=== PATIENT | female | born 1990 ===

== ENCOUNTER → 2018-08-30 | Outpatient (CLI) | payer OTHER | LOC: FIMAGING 08:11 | PROVIDERS: ATTEND Advanced Practice Midwife | DX: Z34.03 Encounter for supervision of normal first pregnancy, third trimester (principal) ==

== ENCOUNTER 2018-10-26 05:01 | Inpatient (IN) | payer OTHER ==
[2018-10-26] MEDS: LR 1,000 ML IV PRN ×3 (06:20→16:27)
[2018-10-26] MEDS ORDERED: LIDOCAINE 1% 300 MG/30 ML SDV SC PRN (06:25)
[2018-10-26] MEDS ORDERED: OXYTOCIN/RINGERS LACTATE 1,000 ML IV PRN (06:25)
[2018-10-26] MEDS ORDERED: TERBUTALINE SULFATE 1 MG/ML VIAL IV PRN (06:25)
[2018-10-26] MEDS ORDERED: MISOPROSTOL 200 MCG TAB PO PRN (06:25)
[2018-10-26] MEDS ORDERED: OLIVE OIL 118 ML BTL MISC PRN (06:25)
[2018-10-26] MEDS ORDERED: IBUPROFEN 600 MG TAB PO PRN (06:25)
[2018-10-26] MEDS ORDERED: EPSOM SALT 454 GM TP PRN (06:25)
[2018-10-26] MEDS ORDERED: AMMONIA AROMATIC 1 EACH AMP IH PRN (06:25)
--- NOTE | 2018-10-26 06:49 | PDGENHP ---
History and Physical History and Physical: CARE: [facility] HPI: Patient is a 28 yo G 1 P 0 @ 41.2 weeks that presents to L&D with complaints of strong uterine contractions since 1999 on 10/25/18. EDC: 10/17/18 which is based on LMP: 01/10/18 which is known and consistent with Ultrasound at 8 weeks. Her is complicated by: BL EIF, normal NIPT Review of Systems: Constitutional: Denies any fever, chills, or fatigue HEENT: denies any visual changes, difficulty swallowing, hearing loss Cardiovascular: Denies any chest pain, palpitations, leg swelling Respiratory: denies any cough, wheezing, or shortness of breathe GI: Denies any nausea, vomiting, diarrhea, constipation : denies any dysuria, urgency, frequency, vaginal bleeding Musculoskeletal: denies any muscle or bone pain Skin: denies any rashes Neuro: denies any headache, seizures, lightheadedness, dizziness, or loss of consciousness Psychiatric: denies any depression, anxiety, or SI/HI thoughts HISTORY: Previous OB history: nullip Social history: Family history: MGF-FL, PGF and MGF heart disease, Mom hypercholesterol, father diabetes, multiple CA in family Past medical history: hx of depression-no meds, hx of frequent UTI, kidney infection, hx of migraines Past surgical history: wisdom teeth Medications: PNV, fiber gummies Allergies (list reaction): prednisone LABS: Rh: A+ ABS: Neg Rubella: Equivocal HbsAg: NR HIV: NR VDRL: NR 1hr: 120 GC: Neg Chlamydia: Neg Pap: Normal 03/14 GBS: neg BMI: (prepreg) 20 PHYSICAL EXAM: Constitutional: WN, A&Ox3 HEENT: normocephalic atraumatic, supple Heart: RRR, no murmur Chest: CTA-B Skin: warm, dry, intact Abdomen: Soft, nontender, gravid SVE: 3/100 per RN Extremities: trace edema, negative homans sign Neuro: grossly normal Psych: normal affect assessment: FHT baseline 130, +accels, no decels, moderate variability Contractions: toco q 2 Assessment: 1) 28 yo G 1 P 0 with IUP@ 41w3d 2) spontaneous onset labor 3) GBS neg 4) Cat 1 FHR tracing 5) N/V in labor Plan: 1) Admit to L&D 2) IV fluids 3) antiemitics 4) Support for unmedicated delivery
[2018-10-26 06:59] LABS: PLATELET COUNT 176 10^3/uL (150-400)
[2018-10-26] MEDS ORDERED: AMMONIA AROMATIC 1 EACH AMP IH ONE (07:26)
[2018-10-26] MEDS ORDERED: TERBUTALINE SULFATE 1 MG/ML VIAL ONE (07:26)
[2018-10-26] MEDS ORDERED: OXYTOCIN 10 UNIT/ML VIAL ONE (07:26)
[2018-10-26] MEDS ORDERED: LIDOCAINE 1% 300 MG/30 ML SDV ONE (07:26)
[2018-10-26] MEDS ORDERED: OLIVE OIL 118 ML BTL ONE (07:26)
[2018-10-26] MEDS ORDERED: MISOPROSTOL 200 MCG TAB ONE (07:27)
[2018-10-26] MEDS ORDERED: ONDANSETRON 4 MG/2 ML VIAL ONE (07:52)
[2018-10-26] MEDS ORDERED: D5W LR 1,000 ML IV SCH (08:00)
[2018-10-26] MEDS: ONDANSETRON 4 MG/2 ML VIAL IVP PRN ×2 (08:00→16:24)
--- NOTE | 2018-10-26 09:28 | OBPROG ---
Labor Progress Note Assessment/Plan: Assessment: [id number] with IUP @41-2wks Early labor GBS Negative cat 1 FHR tracing Plan: hydrotherapy/position changes discussed pain management - open to options IA per protocol reassess 2-4hr/PRN Subjective/Intrapartum Course: 10/26/18 09:27 Pt doing ok- breathing through contractions. She states she did not sleep last night, feels very tired. She desires hydrotherapy at this time. Leyda present @ BS, supportive. Objective: 10/26/18 06:11 Patient ABO/Rh A POSITIVE 10/26/18 06:11 - Contraction Pattern Assessment Current Contraction Pattern: Regular CNM Assessment - Uterine Assessment Contraction Strength: Moderate Uterine Resting Tone: Palpates Soft Between Uterine Contractions - Intermittent Auscultation Auscultation Method Used: Doppler Heart Rate Auscultated (bpm): 115 FHR Deceleration(s) Auscultated: No Oxytocin Orders Assessment - Pre-Induction/Augmentation Assessment Gestational Age: 41 week(s) and 2 day(s) ICD10 Worksheet Patient Problems: Problems Problem Status Onset with 41 completed weeks gestation Acute
--- NOTE | 2018-10-26 13:22 | SOAPPROG ---
SOAP Progress Note Assessment/Plan: Assessment: Patient requested acupuncture for Encouragement and to help reduce nausea. She has been experiencing back labor. Treatment: Auricular: [place] Acupuncture (BFA): Cingular Gyrate, [place] 2, Point Zero, Daigle Men, Thalamus. Auricular point protocol affecting the FISHERIES BIOLOGIST to reduce pain. Bilateral: BL 23-32: Local points on LB to reduce LB labor pains and improve blood flow to uterus to encourage downward movement. DU 26 Reduce LBP Left Side: LI [address] and LR meridians. Reduce nausea. Move the blood. Encourage movement and circulation Ling Gu Extra point to reduce back pain. Da Juliet Extra point to reduce back pain. SI 3 Master point of the DU meridian. Relax the spine. Reduce back pain. Balance the SP and BL meridians. SJ 5 Support the Yudi Danay. "relax the waist". Balance the SP and GB meridians. Relax the shoulders. LI 11 Reduce nausea. Support the intestines. Balance the ST meridian. ST 36 Increase qi and blood. Improve energy. Reduce nausea. GB 34 x 2 cheo: Empirical point to relax the tendons. Open the cervix. Balance SJ and HT. GB 40 Relax the occiput. Relax the waist. Balance SJ and HT meridians. GB 41 Master point of the Yudi Danay/Belt meridian. Relax the waist. Encourage downward movement. BL 65 Benita point of the BL meridian. Relieve back pain. Right Side: SP 6 Meeting pint of the Three Yin (LR/KI/SP) balance the ST and SJ meridians. Encourage blood flow to the uterus. SP 4 Master point of the Bog[place] Danay. Support the uterus. Balance SP, SJ, ST meridians. LR 3 Move the blood. Relax the scapular. Balance the GB, LI and PC meridians. Electric stimulation: L LI 4 - R SP [address] 36 - L GB 41 L GB 34 - L GB 41 BL 23-32, bilateral Plan: 10/26/18 13:10 10/26/18 13:25 Objective: Laboratory Results 10/26/18 06:11 ICD10 Worksheet Patient Problems: Problems Problem Status Onset with 41 completed weeks gestation Acute
--- NOTE | 2018-10-26 14:08 | OBPROG ---
Labor Progress Note Assessment/Plan: Assessment: [id number] with IUP @41-2wks Early labor GBS Negative +FHTs with doppler Plan: hydrotherapy/position changes acupuncture at BS now IA per protocol reassess 2-4hr/PRN Subjective/Intrapartum Course: 10/26/18 09:27 Pt doing ok- breathing through contractions. She states she did not sleep last night, feels very tired. She desires hydrotherapy at this time. Research Physicist present @ BS, supportive. 10/26/18 13:30 Pt doing well, just got out of tub. Having acupuncture done. states her contractions have spaced out, declines exam at this time. Objective: 10/26/18 06:11 Patient ABO/Rh A POSITIVE 10/26/18 06:11 - Contraction Pattern Assessment Current Contraction Pattern: Regular - FHR Assessment Baumann FHR (bpm): 115 CNM Assessment - Uterine Assessment Contraction Strength: Moderate Uterine Resting Tone: Palpates Soft Between Uterine Contractions Contraction Frequency (minutes): irregular, q5-10 min - Intermittent Auscultation Auscultation Method Used: Doppler Heart Rate Auscultated (bpm): 115 Oxytocin Orders Assessment - Pre-Induction/Augmentation Assessment Gestational Age: 41 week(s) and 2 day(s) ICD10 Worksheet Patient Problems: Problems Problem Status Onset with 41 completed weeks gestation Acute
--- NOTE | 2018-10-26 14:34 | OBPROG ---
Labor Progress Note Assessment/Plan: Assessment: [id number] with IUP @41-2wks Early labor GBS Negative +FHTs with doppler Plan: hydrotherapy/position changes will consider acupuncture IA per protocol reassess 2-4hr/PRN Subjective/Intrapartum Course: 10/26/18 09:27 Pt doing ok- breathing through contractions. She states she did not sleep last night, feels very tired. She desires hydrotherapy at this time. Journeyman Level Acoustic Analyst present @ BS, supportive. 10/26/18 11:45 Pt doing well, in tub, will get out and cont position changes. considering acupuncture. live hanger and FOB at BS, supportive. 10/26/18 13:30 Pt doing well, just got out of tub. Having acupuncture done. states her contractions have spaced out, declines exam at this time. Objective: 10/26/18 06:11 Patient ABO/Rh A POSITIVE 10/26/18 06:11 - Contraction Pattern Assessment Current Contraction Pattern: Regular CNM Assessment - Uterine Assessment Contraction Strength: Moderate Uterine Resting Tone: Palpates Soft Between Uterine Contractions - Intermittent Auscultation Heart Rate Auscultated (bpm): 125 FHR Acceleration(s) Auscultated: Yes FHR Deceleration(s) Auscultated: No Oxytocin Orders Assessment - Pre-Induction/Augmentation Assessment Gestational Age: 41 week(s) and 2 day(s) ICD10 Worksheet Patient Problems: Problems Problem Status Onset with 41 completed weeks gestation Acute
--- NOTE | 2018-10-26 16:00 | OBPROG ---
Labor Progress Note Assessment/Plan: Assessment: [id number] with IUP @41-2wks Early labor GBS Negative cat 1 FHR Plan: start pitocin at this time pain management PRN reassess 2-3hr/PRN Subjective/Intrapartum Course: 10/26/18 09:27 Pt doing ok- breathing through contractions. She states she did not sleep last night, feels very tired. She desires hydrotherapy at this time. Credit Union Examiner present @ BS, supportive. 10/26/18 11:45 Pt doing well, in tub, will get out and cont position changes. considering acupuncture. weed inspector and FOB at BS, supportive. 10/26/18 13:30 Pt doing well, just got out of tub. Having acupuncture done. states her contractions have spaced out, declines exam at this time. 10/26/18 16:00 Pt doing ok. states she is not having any pain, contractions irregular and not intense as this morning. weed inspector and FOB supportive. Objective: 10/26/18 06:11 Patient ABO/Rh A POSITIVE 10/26/18 06:11 - SVE Dilation (cm): 4 Effacement (%): 80 Station: -2 Membranes: Intact - Contraction Pattern Assessment Current Contraction Pattern: Regular - FHR Assessment Baumann FHR (bpm): 130 FHR Pattern Variability: Moderate FHR Category: 1 CNM Assessment - Uterine Assessment Contraction Strength: Moderate Uterine Resting Tone: Palpates Soft Between Uterine Contractions Oxytocin Orders Assessment - Pre-Induction/Augmentation Assessment Gestational Age: 41 week(s) and 2 day(s) ICD10 Worksheet Patient Problems: Problems Problem Status Onset with 41 completed weeks gestation Acute
[2018-10-26] MEDS ORDERED: LR 500 ML IV PRN (16:15)
[2018-10-26] MEDS ORDERED: OXYTOCIN/RINGERS LACTATE 500 ML IV SCH (16:30)
[2018-10-26] MEDS ORDERED: FAMOTIDINE 20 MG/NACL 50 ML IV ONE (17:45)
--- NOTE | 2018-10-26 18:22 | OBPROG ---
Labor Progress Note Assessment/Plan: Assessment: [id number] with IUP @41-2wks Early labor GBS Negative doppler: +FHT Plan: cont pitocin pain management PRN- anesthesia to come speak with pt re: DEL reassess 2-3hr/PRN 10/26/18 18:22 Subjective/Intrapartum Course: 10/26/18 09:27 Pt doing ok- breathing through contractions. She states she did not sleep last night, feels very tired. She desires hydrotherapy at this time. Arts And Crafts Teacher present @ BS, supportive. 10/26/18 11:45 Pt doing well, in tub, will get out and cont position changes. considering acupuncture. letterset press set up operator and FOB at BS, supportive. 10/26/18 13:30 Pt doing well, just got out of tub. Having acupuncture done. states her contractions have spaced out, declines exam at this time. 10/26/18 16:00 Pt doing ok. states she is not having any pain, contractions irregular and not intense as this morning. letterset press set up operator and FOB supportive. 10/26/18 18:22 Pt doing well, breathing through contractions, but having nausea and vomiting with contractions. Considering DEL, would like to speak with anesthesia. Objective: 10/26/18 06:11 Patient ABO/Rh A POSITIVE 10/26/18 06:11 - SVE Membranes: Intact - Contraction Pattern Assessment Current Contraction Pattern: Regular CNM Assessment - Uterine Assessment Contraction Strength: Moderate Uterine Resting Tone: Palpates Soft Between Uterine Contractions Oxytocin Orders Assessment - Pre-Induction/Augmentation Assessment Gestational Age: 41 week(s) and 2 day(s) ICD10 Worksheet Patient Problems: Problems Problem Status Onset with 41 completed weeks gestation Acute
[2018-10-26] MEDS ORDERED: PHENYLEPHRINE HCL 100 MCG/ML SYR ONE (18:31)
[2018-10-26] MEDS ORDERED: ONDANSETRON 4 MG/2 ML VIAL IVP PRN (18:33)
[2018-10-26] MEDS ORDERED: NALOXONE HCL 0.4 MG/ML INJ IVP PRN (18:33)
[2018-10-26] MEDS ORDERED: BUPIVACAINE 0.25% 30 ML SDV ONE (18:35)
[2018-10-26] MEDS ORDERED: fentaNYL 200 MCG, BUPIVACAINE 0.5% 20 ML in NS 100 ML EP SCH (19:00)
[2018-10-26] MEDS ORDERED: fentaNYL 2MCG/ML/BUP 0.1% RTU 100 ML EP SCH (19:00)
[2018-10-26] MEDS ORDERED: LR 500 ML IV SCH (19:00)
--- NOTE | 2018-10-26 20:57 | PREANESOB ---
Obstetric Pre-Anesthesia Info - General Info Proposed Procedure: Labor Epidural : 1 Para: 0 HOLLY: 10/17/18 Gestational Age: 41 week(s) and 2 day(s) - Info Status: Full Term - Labor Status Cervical Dilation per last OB SVE: 4 Station per last OB SVE: -2 Indications for Labor Analgesia: Pain Control Anesthesia Allergies/Adverse Reactions: Allergy/AdvReac Type Severity Reaction Status Date / Time prednisone Allergy Verified 10/26/18 08:27 Home Medications: Medication Instructions Recorded Dha 1 tab PO DAILY 10/26/18 Probiotic 1 PO DAILY 10/26/18 Visit Medications: Generic Name Dose Route Start Last Admin Trade Name Freq PRN Reason Stop Dose Admin Ammonia (Aromatic Spirit) 1 each 10/26/18 06:25 Ammonia Aromatic IH 11/05/18 06:24 ONCE PRN Fainting Diphenhydramine HCl 25 - 50 mg 10/26/18 18:33 Benadryl Injection IVP 04/24/19 18:32 Q6HRS PRN Itching Lactated Ringer's 1,000 mls @ 0 mls/hr 10/26/18 06:25 10/26/18 16:27 Lr IV 10/27/18 06:24 1,000 mls PRN PRN Administration SEE PROTOCOL CONDITIONS Protocol Per Protocol Oxytocin/Lactated Ringer's 1,000 mls @ 0 mls/hr 10/26/18 06:25 Pitocin 20 Units/Lr (Premix) IV PRN PRN Post bleeding As Directed Dextrose/Lactated Ringer's 1,000 mls @ 150 mls/hr 10/26/18 08:00 D5w Lr IV 04/24/19 07:59 CONT SKYLAR Lactated Ringer's 500 mls @ 500 mls/hr 10/26/18 16:15 Lr IV 10/27/18 16:15 PRN PRN Maternal Hypotension Oxytocin/Lactated Ringer's 500 mls @ 0 mls/hr 10/26/18 16:30 10/26/18 16:27 Pitocin 30 Units/Lr (Premix) IV 04/24/19 16:29 500 mls CONT SKYLAR Administration Protocol Per Protocol Lactated Ringer's 500 mls @ 0 mls/hr 10/26/18 19:00 Lr IV 04/24/19 18:59 CONT SKYLAR As Directed Fentanyl 200 mcg/ Bupivacaine 100 mls @ 0 mls/hr 10/26/18 19:00 HCl 20 ml/ Sodium Chloride EP 11/05/18 18:59 CONT COUNTS INCLUDE 234 BEDS AT THE [facility] Protocol As Directed Ibuprofen 600 mg 10/26/18 06:25 Motrin PO ONCE PRN post , pain Lidocaine HCl 300 mg 10/26/18 06:25 Lidocaine Hcl 1% SC 04/24/19 06:24 ONCE PRN episiotomy Magnesium Sulfate 454 gm 10/26/18 06:25 Epsom Salt TP 04/24/19 06:24 Q1H PRN perineal discomfort Misoprostol 800 - 1,000 mcg 10/26/18 06:25 Cytotec PO 04/24/19 06:24 ONCE PRN Vaginal Atony/Bleeding Naloxone HCl 0.4 mg 10/26/18 18:33 Narcan IVP 04/24/19 18:32 PRN PRN Respiratory depression Vale Oil 118 ml 10/26/18 06:25 Sweet Oil MISC 04/24/19 06:24 ONCE PRN perineal massage Ondansetron HCl 4 mg 10/26/18 07:54 10/26/18 16:24 Zofran IVP 04/24/19 07:53 4 mg Q4HRS PRN Administration Nausea/Vomiting, Can't Take PO Ondansetron HCl 4 mg 10/26/18 18:33 Zofran IVP 10/27/18 18:32 Q4HRS PRN Nausea/Vomiting, Can't Take PO Terbutaline Sulfate 0.25 mg 10/26/18 06:25 Brethine IV 04/24/19 06:24 ONCE PRN Tachysystole Discontinued Medications Generic Name Dose Route Start Last Admin Trade Name Freq PRN Reason Stop Dose Admin Ammonia (Aromatic Spirit) Confirm 10/26/18 07:26 Ammonia Aromatic Administered 10/26/18 07:27 Dose 1 each IH .STK-MED ONE Bupivacaine HCl Confirm 10/26/18 18:35 Sensorcaine 0.25% Sdv Administered 10/26/18 18:36 Dose 30 ml .ROUTE .STK-MED ONE Famotidine/Sodium Chloride 50 mls @ 200 mls/hr 10/26/18 17:45 10/26/18 17:39 Pepcid 20 Mg (Premix) IV 10/26/18 17:59 50 mls ONCE ONE Administration Lidocaine HCl Confirm 10/26/18 07:26 Lidocaine Hcl 1% Administered 10/26/18 07:27 Dose 300 mg .ROUTE .STK-MED ONE Misoprostol Confirm 10/26/18 07:27 Cytotec Administered 10/26/18 07:28 Dose 1,000 mcg .ROUTE .STK-MED ONE Vale Oil Confirm 10/26/18 07:26 Sweet Oil Administered 10/26/18 07:27 Dose 118 ml .ROUTE .STK-MED ONE Ondansetron HCl Confirm 10/26/18 07:52 Zofran Administered 10/26/18 07:53 Dose 4 mg .ROUTE .STK-MED ONE Oxytocin Confirm 10/26/18 07:26 Pitocin Administered 10/26/18 07:27 Dose 40 unit .ROUTE .STK-MED ONE Phenylephrine HCl Confirm 10/26/18 18:31 Neosynephrine Administered 10/26/18 18:32 Dose 1,000 mcg .ROUTE .STK-MED ONE Terbutaline Sulfate Confirm 10/26/18 07:26 Brethine Administered 10/26/18 07:27 Dose 1 mg .ROUTE .STK-MED ONE - Vital Signs Height/Weight (Nursing): Height 170.18 cm Weight 73.028 kg - Focused Exam Neck exam: FROM Mallampati Score: Class 2 Mouth exam: normal dental/mouth exam Pulmonary: clear to auscultation Cardiovascular: regular rate and rhythym Labs: 10/26/18 06:11 Patient ABO/Rh A POSITIVE 10/26/18 06:11 - Plan Consent Signed and on Chart: Yes
--- NOTE | 2018-10-26 22:09 | OBPROG ---
Labor Progress Note Assessment/Plan: Assessment: [id number] with IUP @41-2wks Early labor GBS Negative Cat [address] Plan: cont pitocin reassess 2-4hr/PRN AROM if no cervical change at next exam Subjective/Intrapartum Course: 10/26/18 09:27 Pt doing ok- breathing through contractions. She states she did not sleep last night, feels very tired. She desires hydrotherapy at this time. Cnc Service Engineer present @ BS, supportive. 10/26/18 11:45 Pt doing well, in tub, will get out and cont position changes. considering acupuncture. casino runner and FOB at BS, supportive. 10/26/18 13:30 Pt doing well, just got out of tub. Having acupuncture done. states her contractions have spaced out, declines exam at this time. 10/26/18 16:00 Pt doing ok. states she is not having any pain, contractions irregular and not intense as this morning. casino runner and FOB supportive. 10/26/18 18:22 Pt doing well, breathing through contractions, but having nausea and vomiting with contractions. Considering DEL, would like to speak with anesthesia. 10/26/18 22:09 Pt comfortable, resting. She denies any pain. FOB and casino runner at BS, resting. Objective: 10/26/18 06:11 Patient ABO/Rh A POSITIVE 10/26/18 06:11 - SVE Dilation (cm): 4 Effacement (%): 80 Station: -2 Membranes: Intact - Contraction Pattern Assessment Current Contraction Pattern: Regular - FHR Assessment Baumann FHR (bpm): 125 FHR Pattern Variability: Moderate FHR Category: 1 Oxytocin Orders Assessment - Pre-Induction/Augmentation Assessment Gestational Age: 41 week(s) and 2 day(s) ICD10 Worksheet Patient Problems: Problems Problem Status Onset with 41 completed weeks gestation Acute
--- NOTE | 2018-10-27 02:55 | OBPROG ---
Labor Progress Note Assessment/Plan: Assessment: [id number] with IUP @41-2wks Early labor GBS Negative Cat [address] AROM- thick MSF IUPC placed Plan: cont pitocin reassess 2-4hr/PRN Subjective/Intrapartum Course: 10/26/18 09:27 Pt doing ok- breathing through contractions. She states she did not sleep last night, feels very tired. She desires hydrotherapy at this time. Loss Prevention Associate present @ BS, supportive. 10/26/18 11:45 Pt doing well, in tub, will get out and cont position changes. considering acupuncture. assistant women's soccer coach and FOB at BS, supportive. 10/26/18 13:30 Pt doing well, just got out of tub. Having acupuncture done. states her contractions have spaced out, declines exam at this time. 10/26/18 16:00 Pt doing ok. states she is not having any pain, contractions irregular and not intense as this morning. assistant women's soccer coach and FOB supportive. 10/26/18 18:22 Pt doing well, breathing through contractions, but having nausea and vomiting with contractions. Considering DEL, would like to speak with anesthesia. 10/26/18 22:09 Pt comfortable, resting. She denies any pain. FOB and assistant women's soccer coach at BS, resting. 10/27/18 02:55 Pt doing well, is feeling some pain with contractions. She desires to hit DEL bolus. Objective: 10/26/18 06:11 Patient ABO/Rh A POSITIVE 10/26/18 06:11 - SVE Dilation (cm): 5 Effacement (%): 90 Station: -1 Membranes: AROM Amniotic Fluid Color: Thick Meconium - Contraction Pattern Assessment Current Contraction Pattern: Regular - FHR Assessment Baumann FHR (bpm): 125 FHR Pattern Variability: Moderate FHR Category: 1 - Procedures Non-surgical Procedures: Amniotomy, IUPC Oxytocin Orders Assessment - Pre-Induction/Augmentation Assessment Gestational Age: 41 week(s) and 2 day(s) ICD10 Worksheet Patient Problems: Problems Problem Status Onset with 41 completed weeks gestation Acute
[2018-10-27] MEDS: LR 1,000 ML IV PRN (03:24)
[2018-10-27] MEDS ORDERED: CALCIUM CARBONATE 500 MG CHEWABLE TAB PO PRN (05:43)
--- NOTE | 2018-10-27 05:46 | OBPROG ---
Labor Progress Note Assessment/Plan: Assessment: [id number] with IUP @41-3wks Active labor GBS Negative Cat [address] thick MSF Plan: cont pitocin, avoiding tachysystole reassess 2hr/PRN if variables cont will start amnioinfusion anticipate pushing in approx 2 hours Subjective/Intrapartum Course: 10/26/18 09:27 Pt doing ok- breathing through contractions. She states she did not sleep last night, feels very tired. She desires hydrotherapy at this time. Geography Instructor present @ BS, supportive. 10/26/18 11:45 Pt doing well, in tub, will get out and cont position changes. considering acupuncture. strike plate attacher and FOB at BS, supportive. 10/26/18 13:30 Pt doing well, just got out of tub. Having acupuncture done. states her contractions have spaced out, declines exam at this time. 10/26/18 16:00 Pt doing ok. states she is not having any pain, contractions irregular and not intense as this morning. strike plate attacher and FOB supportive. 10/26/18 18:22 Pt doing well, breathing through contractions, but having nausea and vomiting with contractions. Considering DEL, would like to speak with anesthesia. 10/26/18 22:09 Pt comfortable, resting. She denies any pain. FOB and strike plate attacher at BS, resting. 10/27/18 02:55 Pt doing well, is feeling some pain with contractions. She desires to hit DEL bolus. Objective: 10/26/18 06:11 Patient ABO/Rh A POSITIVE 10/26/18 06:11 - SVE Dilation (cm): 9 Effacement (%): 90 Station: -1 Membranes: AROM Amniotic Fluid Color: Thick Meconium - Contraction Pattern Assessment Current Contraction Pattern: Regular - FHR Assessment Baumann FHR (bpm): 120 (prolong decel x3 min) FHR Pattern Variability: Moderate FHR Category: 2 - Procedures Non-surgical Procedures: Amniotomy, IUPC Oxytocin Orders Assessment - Pre-Induction/Augmentation Assessment Gestational Age: 41 week(s) and 2 day(s) ICD10 Worksheet Patient Problems: Problems Problem Status Onset with 41 completed weeks gestation Acute
[2018-10-27] MEDS: ONDANSETRON 4 MG/2 ML VIAL IVP PRN (05:54)
[2018-10-27] MEDS ORDERED: BUPIVACAINE 0.25% 30 ML SDV ONE (07:59)
--- NOTE | 2018-10-27 08:32 | OBPROG ---
Labor Progress Note Assessment/Plan: Assessment: [id number] with IUP @41-3wks Active labor GBS Negative Cat 2 FHR, prolong decel 3-[address] thick MSF IUPC/FSE Plan: start pushing once MD available anticipate 10/27/18 08:29 Subjective/Intrapartum Course: 10/26/18 09:27 Pt doing ok- breathing through contractions. She states she did not sleep last night, feels very tired. She desires hydrotherapy at this time. Satellite Technician present @ BS, supportive. 10/26/18 11:45 Pt doing well, in tub, will get out and cont position changes. considering acupuncture. rack production worker and FOB at BS, supportive. 10/26/18 13:30 Pt doing well, just got out of tub. Having acupuncture done. states her contractions have spaced out, declines exam at this time. 10/26/18 16:00 Pt doing ok. states she is not having any pain, contractions irregular and not intense as this morning. rack production worker and FOB supportive. 10/26/18 18:22 Pt doing well, breathing through contractions, but having nausea and vomiting with contractions. Considering DEL, would like to speak with anesthesia. 10/26/18 22:09 Pt comfortable, resting. She denies any pain. FOB and rack production worker at BS, resting. 10/27/18 02:55 Pt doing well, is feeling some pain with contractions. She desires to hit DEL bolus. 10/27/18 08:31 Pt feeling pressure with contractions. Denies any pain. Satellite Technician and FOB @ BS, supportive. Objective: 10/26/18 06:11 Patient ABO/Rh A POSITIVE 10/26/18 06:11 - SVE Dilation (cm): 10 Effacement (%): 100 Station: +1 Membranes: AROM Amniotic Fluid Color: Thick Meconium - Contraction Pattern Assessment Current Contraction Pattern: Regular - FHR Assessment Baumann FHR (bpm): 120 (prolong decel noted with pushing) FHR Pattern Variability: Moderate FHR Category: 2 - Procedures Non-surgical Procedures: Amniotomy, IUPC Oxytocin Orders Assessment - Pre-Induction/Augmentation Assessment Gestational Age: 41 week(s) and 2 day(s) ICD10 Worksheet Patient Problems: Problems Problem Status Onset with 41 completed weeks gestation Acute
--- NOTE | 2018-10-27 09:38 | PDCONSULT ---
Heavy Mobile Equipment Operator Note: Called at 0817 by Mary Wall CNM, requesting my presence during pushing phase of primip, as had heart rate deceleration with first 2 pushes, which resolved and they were going to hold off on pushing until my arrival. Messaged at 0830 - FHR is fine. Arrived to floor by 0845. Reviewed pt with CNM and FHR tracing. Pushing to resume. Has now been pushing since 09, with heart rate baseline of 120, with decels with pushing to 70. Varying speed of return to baseline, with moderate variability between contractions. Will continue to observe and be available at [facility] request. Deonna Herrera MD, FACOG [facility]
[2018-10-27] MEDS ORDERED: HYDROCORTISONE 0.5% CREAM TP PRN (11:44)
[2018-10-27] MEDS ORDERED: SIMETHICONE 80 MG TAB CHEW PO PRN (11:44)
--- NOTE | 2018-10-27 13:07 | OBDEL ---
Info Type: Vaginal Presentation at Delivery: Vertex L&D Analgesia/Anesthesia Type: Epidural GBS+: No Intrapartum Medications: Generic Name Dose Route Start Last Admin Trade Name Mirna PRN Reason Stop Dose Admin Calcium Carbonate 500 mg 10/27/18 05:43 10/27/18 05:54 Tums PO 04/25/19 05:42 500 mg TID PRN Administration Indigestion Oxytocin/Lactated Ringer's 500 mls @ 0 mls/hr 10/26/18 16:30 10/26/18 16:27 Pitocin 30 Units/Lr (Premix) IV 04/24/19 16:29 500 mls CONT SKYLAR Administration Protocol Per Protocol Ondansetron HCl 4 mg 10/26/18 07:54 10/27/18 05:54 Zofran IVP 04/24/19 07:53 4 mg Q4HRS PRN Administration Nausea/Vomiting, Can't Take PO Discontinued Medications Generic Name Dose Route Start Last Admin Trade Name Mirna PRN Reason Stop Dose Admin Lactated Ringer's 1,000 mls @ 0 mls/hr 10/26/18 06:25 10/27/18 03:24 Lr IV 10/27/18 06:24 1,000 mls PRN PRN Administration SEE PROTOCOL CONDITIONS Protocol Per Protocol Oxytocin/Lactated Ringer's 1,000 mls @ 0 mls/hr 10/26/18 06:25 10/27/18 10:33 Pitocin 20 Units/Lr (Premix) IV 1,000 mls PRN PRN Administration Post bleeding As Directed Famotidine/Sodium Chloride 50 mls @ 200 mls/hr 10/26/18 17:45 10/26/18 17:39 Pepcid 20 Mg (Premix) IV 10/26/18 17:59 50 mls ONCE ONE Administration Fentanyl 200 mcg/ Bupivacaine 100 mls @ 0 mls/hr 10/26/18 19:00 10/27/18 02: 21 HCl 20 ml/ Sodium Chloride EP 11/05/18 18:59 100 mls CONT SKYLAR Administration Protocol As Directed Ibuprofen 600 mg 10/26/18 06:25 10/27/18 10:21 Motrin PO 600 mg ONCE PRN Administration post , pain - Hospital Course Intrapartum: 10/26/18 09:27 Pt doing ok- breathing through contractions. She states she did not sleep last night, feels very tired. She desires hydrotherapy at this time. Facilities Painter present @ BS, supportive. 10/26/18 11:45 Pt doing well, in tub, will get out and cont position changes. considering acupuncture. hvac project engineer and FOB at BS, supportive. 10/26/18 13:30 Pt doing well, just got out of tub. Having acupuncture done. states her contractions have spaced out, declines exam at this time. 10/26/18 16:00 Pt doing ok. states she is not having any pain, contractions irregular and not intense as this morning. hvac project engineer and FOB supportive. 10/26/18 18:22 Pt doing well, breathing through contractions, but having nausea and vomiting with contractions. Considering DEL, would like to speak with anesthesia. 10/26/18 22:09 Pt comfortable, resting. She denies any pain. FOB and hvac project engineer at BS, resting. 10/27/18 02:55 Pt doing well, is feeling some pain with contractions. She desires to hit DEL bolus. 10/27/18 08:31 Pt feeling pressure with contractions. Denies any pain. Facilities Painter and FOB @ BS, supportive. Indications for Delivery: Spontaneous Labor Vaginal Delivery - Delivery Provider Delivery Physician/CNM: Mary Wall - Labor and Delivery Onset of Contractions Date: 10/25/18 Onset of Contractions Time: 20:00 Onset of Contractions Type: Augmented Rupture of Membranes Date: 10/27/18 Rupture of Membranes Type: Artificial Amniotic Fluid Color: Thick Meconium Dilation Complete Date: 10/27/18 Dilation Complete Time: 08:08 Placenta Delivery Date: 10/27/18 Placenta Delivery Time: 09:57 Total Hours of Labor: 37 Non-surgical Procedures: Amniotomy, IUPC Laceration: 1st Degree Repair: 3-0, Vicryl Vaginal Sponge Count Correct: Yes Vaginal Needle Count Correct: Yes Vaginal Sweep Performed: Yes EBL: 200 Delivery Events: Other (Specify) (compound right arm) Cord Gases: Cord Gases Cord Blood PCO2 22.7 mmHg (37-60) L 10/27/18 09:58 Cord Base Excess -6.6 mEq/L (-13.6--3.2) 10/27/18 09:58 Cord ABG pH 7.24 (7.10-7.37) 10/27/18 09:58 Cord VBG pH 7.37 (7.20-7.42) 10/27/18 09:58 - Medications Labor Augmentation/Induction Methods Used: Pitocin Labor Augmentation/Induction Indication: Inadequate Contraction Frequency, Inadequate Contraction Strength Operative Report - Delivery Cord Gases: Cord Gases Cord Blood PCO2 22.7 mmHg (37-60) L 10/27/18 09:58 Cord Base Excess -6.6 mEq/L (-13.6--3.2) 10/27/18 09:58 Cord ABG pH 7.24 (7.10-7.37) 10/27/18 09:58 Cord VBG pH 7.37 (7.20-7.42) 10/27/18 09:58 Data HOLLY: 10/17/18 Gestational Age: 41 week(s) and 3 day(s) Baumann Delivery Date: 10/27/18 Delivery Time: 09:53 Sex of Infant: Male Score (1 Min): 7 Score (5 Min): 8 ICD10 Worksheet Patient Problems: Problems Problem Status Onset with 41 completed weeks gestation Acute
[2018-10-27] MEDS: ACETAMINOPHEN 325 MG TAB PO SCH ×3 (13:13→23:01)
--- NOTE | 2018-10-27 15:18 | POSTANESTH ---
Post Anesthetic Evaluation Cardiovascular Status: Normal, Stable Respiratory Status: Normal, Stable Level of Consciousness/Mental Status: Can Participate in Eval Pain Control: Adequate, Prn Tx Ordered Nausea/Vomiting Control: Adequate, Prn Tx Ordered Complications Possibly Related to Anesthesia: None Noted
[2018-10-27] MEDS: IBUPROFEN 600 MG TAB PO SCH ×2 (16:20→23:01)
[2018-10-27] MEDS: DOCUSATE SODIUM 100 MG CAP PO PRN (23:01)
[2018-10-28] MEDS: ACETAMINOPHEN 325 MG TAB PO SCH ×4 (05:27→23:26)
[2018-10-28] MEDS: IBUPROFEN 600 MG TAB PO SCH ×4 (05:28→23:26)
[2018-10-28] MEDS: DOCUSATE SODIUM 100 MG CAP PO PRN (09:01)
--- NOTE | 2018-10-28 10:36 | OBPP ---
Progress Note Assessment/Plan: Assessment: Post- day 1 Plan: Normal PP care Breast feeding assistance D/C home tomorrow 10/28/18 10:34 Subjective/ Course: 10/28/18 10:35 Feeling well. Breast feeding well. Pain well controlled with PO meds. Voiding well. No BM yet. Objective: 10/26/18 06:11 Patient ABO/Rh A POSITIVE 10/26/18 06:11 Temp Pulse Resp BP Pulse Ox 36.3 C 74 16 114/71 95 10/27/18 20:00 10/27/18 20:00 10/27/18 20:00 10/27/18 20:00 10/27/18 20:00 VSS Uterine Position/Fundal Height: At Umbilicus Uterine Tone: Firm
[2018-10-29] MEDS: IBUPROFEN 600 MG TAB PO SCH ×2 (05:31→11:42)
[2018-10-29] MEDS: ACETAMINOPHEN 325 MG TAB PO SCH ×2 (05:31→11:42)
[2018-10-29] MEDS: DOCUSATE SODIUM 100 MG CAP PO PRN (05:37)
[2018-10-29 09:25] VITALS: BP 105/66
--- NOTE | 2018-10-29 11:07 | OBPP ---
Progress Note Assessment/Plan: Assessment: PPD # 2 Establishing Plan: Discharge home today; follow up week 2//6 10/29/18 11:06 Subjective/ Course: 10/28/18 10:35 Feeling well. Breast feeding well. Pain well controlled with PO meds. Voiding well. No BM yet. 10/29/18 11:05 Doing well. Overall happy with experience. Pain well controlled with medication. going well. Bleeding minimal. Ready to discharge home today. Objective: 10/26/18 06:11 Patient ABO/Rh A POSITIVE 10/26/18 06:11 Temp Pulse Resp BP Pulse Ox 36.5 C 76 17 105/66 97 10/29/18 08:36 10/29/18 08:36 10/29/18 08:36 10/29/18 08:36 10/29/18 08:36 Breasts soft; nipples intact bilaterally neg lolis's Uterine Position/Fundal Height: Umbilicus -1 Uterine Tone: Firm
--- NOTE | 2018-10-29 11:08 | OBGCSDC ---
General Delivery Information - General Info : 1 Para: 1 Abortions: 0 Type: Vaginal L&D Analgesia/Anesthesia Type: Epidural Admission Date: 10/26/18 Labs: Patient ABO/Rh A POSITIVE 10/26/18 06:11 Hct 43.9 % (38.0-47.0) 10/26/18 06:11 - Hospital Course Intrapartum: 10/26/18 09:27 Pt doing ok- breathing through contractions. She states she did not sleep last night, feels very tired. She desires hydrotherapy at this time. Credit Rating Checker present @ BS, supportive. 10/26/18 11:45 Pt doing well, in tub, will get out and cont position changes. considering acupuncture. mohel and FOB at BS, supportive. 10/26/18 13:30 Pt doing well, just got out of tub. Having acupuncture done. states her contractions have spaced out, declines exam at this time. 10/26/18 16:00 Pt doing ok. states she is not having any pain, contractions irregular and not intense as this morning. mohel and FOB supportive. 10/26/18 18:22 Pt doing well, breathing through contractions, but having nausea and vomiting with contractions. Considering DEL, would like to speak with anesthesia. 10/26/18 22:09 Pt comfortable, resting. She denies any pain. FOB and mohel at BS, resting. 10/27/18 02:55 Pt doing well, is feeling some pain with contractions. She desires to hit DEL bolus. 10/27/18 08:31 Pt feeling pressure with contractions. Denies any pain. Credit Rating Checker and FOB @ BS, supportive. : 10/28/18 10:35 Feeling well. Breast feeding well. Pain well controlled with PO meds. Voiding well. No BM yet. 10/29/18 11:05 Doing well. Overall happy with experience. Pain well controlled with medication. going well. Bleeding minimal. Ready to discharge home today. Vaginal - Delivery Provider Delivery Physician/CNM: Mary Wall - Diagnosis Labor: Augmented Rupture of Membranes Type: Artificial Amniotic Fluid Color: Thick Meconium Laceration: 1st Degree Repair: 3-0, Vicryl Delivery Events: Other (Specify) (compound right arm) - Procedures Non-surgical Procedures: Amniotomy, IUPC - Delivery Non-surgical Procedures: Amniotomy, IUPC EBL: 200 Data HOLLY: 10/17/18 Gestational Age: 41 week(s) and 5 day(s) [facility] Delivery Date: 10/27/18 Delivery Time: 09:53 Sex of Infant: Male [place] Weight (gm): 3696 g Score (1 Min): 7 Score (5 Min): 8 Discharge Information - Discharge Information Condition: Good Instruction/Follow Up: Two Weeks, Four Weeks, Six Weeks
== END 2018-10-29 13:02 | disposition home or self-care (01) | DRG 807 ==
LOC: FLD 05:01 → FOB 10-27 13:23
PROVIDERS: ADMIT Advanced Practice Midwife; ATTEND Hospitalist
PROC: 10H073Z Insertion of Monitoring Electrode into Products of Conception, Via Natural or Artificial Opening (ICD-10-PCS; 2018-10-26)
PROC: 0HQ9XZZ Repair Perineum Skin, External Approach (ICD-10-PCS; 2018-10-26)
PROC: 8E0H30Z Acupuncture (ICD-10-PCS; 2018-10-26)
PROC: 10E0XZZ Delivery of Products of Conception, External Approach (ICD-10-PCS; principal; 2018-10-27)
DX: O77.0 Labor and delivery complicated by meconium in amniotic fluid (principal); O76 Abnormality in fetal heart rate and rhythm complicating labor and delivery; O32.6XX0 Maternal care for compound presentation, not applicable or unspecified; O48.0 Post-term pregnancy; O70.0 First degree perineal laceration during delivery; Z3A.41 41 weeks gestation of pregnancy; Z37.0 Single live birth
CPT/HCPCS: J2370; J2405; J2590; J3010; J3105